=== PATIENT | male | born 1965 | race Caucasian/White ===

== ENCOUNTER → 2019-09-21 | Outpatient (CLI) | payer OTHER ==
[~2019-09-21] MED LIST: NORCO 5-325 TA1 EAC1 PO
== END ==
LOC: ULTRA 10:23
PROVIDERS: ATTEND Family Medicine
DX: R16.1 Splenomegaly, not elsewhere classified (principal)

== ENCOUNTER → 2019-09-22 | Outpatient (CLI) | payer OTHER | LOC: LAB 13:48 | PROVIDERS: ATTEND Student in an Organized Health Care Education/Training Program | DX: Z01.818 Encounter for other preprocedural examination (principal); Z11.59 Encounter for screening for other viral diseases ==

== ENCOUNTER 2019-09-24 07:22 | Observation (INO) | payer OTHER ==
[~2019-09-24] VITALS: Ht 198.1 cm; Wt 99.8 kg
--- NOTE | ~2019-09-24 | O ---
[facility] [place] [address] OPERATIVE REPORT Name: EMILEE YOUNG Room #: 447-P [facility] Davida Sparks#: [id number] Admission: 09/24/19 Attend Phys: Sanju Goodwin MD Discharge: 09/24/19 Date of : 69 Report #: [id number] THIS REPORT FOR: cc: Lowell Felix James A. DO Chu, Peter Y. MD ~ CC: Lowell Goodwin DATE OF SERVICE: 09/24/2019 PREOPERATIVE DIAGNOSIS: Cholecystitis with sludge. POSTOPERATIVE DIAGNOSES: Cholecystitis with sludge. Dense chronic adhesions surrounding the gallbladder. PROCEDURE PERFORMED: Laparoscopic cholecystectomy with cholangiogram. SURGEON: Sanju Goodwin MD ANESTHESIA: General anesthesia. COMPLICATIONS: None. ESTIMATED BLOOD LOSS: 20 mL. PROCEDURE NOTE: With the patient under general anesthesia, abdomen was prepped and draped in sterile fashion. The patient received IV antibiotics. Timeout was performed. A 0.25% Marcaine was used to anesthetize the skin. Curvilinear incision was made infraumbilically. Fascia was identified. Fascia was then incised between clamps. 0 Vicryl suture placed on the fascia for retraction. Incision and the fascia was made vertically just below the umbilicus. Veress needle was then placed through the peritoneum. Abdominal cavity was insufflated with CO2. After creating pneumoperitoneum, 11 mm trocar was placed through the fascia defect through the peritoneum under visualization. No harm to lung tissue. The patient did have a prior right inguinal hernia repair. Laparoscopic there is a slight gap of the internal ring, but I did not see any significant hernia. Left side is normal. Gallbladder was identified. The patient was placed in the reverse Trendelenburg position, right side tilted up. Two 5 mm trocars to the right upper quadrant, another 5 mm trocar was placed in right epigastrium. Gallbladder was covered by dense adhesions. The fundus of the gallbladder was identified. Adhesions were taken down. Cautery was used to divide the adhesions. The adhesions were quite dense on the gallbladder. I then circumferential wrap the gallbladder. This is consistent with chronic irritation to the gallbladder. The adhesions were taken down. When I got down to the more proximal part of the gallbladder, opening was made in the [address] [address] OPERATIVE REPORT Name: EMILEE YOUNG Room #: 447-P [facility] Davida Sparks#: [id number] Admission: 09/24/19 Attend Phys: Sanju Goodwin MD Discharge: 09/24/19 Date of : 69 Report #: [id number] gallbladder due to the thinning out of the gallbladder wall. The bile was suctioned out. Further dissection to the proximal part of the gallbladder was performed. The cystic duct was visualized. Cystic artery was also able to be visualized. The cystic duct was isolated. The gallbladder junction to the cystic duct was identified. Clip was placed here. Opening was made in the cystic duct. The cystic duct appears to be quite elongated. The catheter was placed in the cystic duct held with clips. The fluoroscopic cholangiogram was obtained. The common duct filled out well, I did not see any filling defect. There is a fairly long and tortuous cystic duct. The left hepatic did not fill as much, but there is no doubt where the catheter was identified in the cystic duct, no harm to the common duct. Cholangiogram catheter was identified, the proximal cystic duct was then clipped x 2 and then divided. Cystic artery was then isolated. This was clipped x 2 proximally and 1 distally and then divided. This area is fairly floppy. The gallbladder was free from the liver bed and retrieved through the infraumbilical port. When I was examining the liver bed, adjacent to the original artery, but more anterior there was a small artery branch. This was . After the bifurcation of the cystic artery, this branch was also clipped. Irrigation was performed. There was oozing laterally along the adhesion that was taken down. Clips were applied. The cautery was also used to cauterize some of the small vessels and the fat. Little bit of fat that was adherent to the gallbladder. Hemostasis obtained. Surgicel was placed on the adhesion areas. CO2 was evacuated. Trocars removed. The infraumbilical fascia defect was closed with [id number] 0 Vicryl x 2. The fascia defect was closed with [id number] 0 Vicryl x 2. Subcutaneous was irrigated. Skin closed with 5-0 PDS. Steri-Strip applied. Band-Aids applied. The patient tolerated the procedure well. By: 40 20 Sanju Goodwin MD /nt
[2019-09-24] MEDS ORDERED: NORCO 5-325 TA1 EAC1 PO (10:58)
--- NOTE | 2019-09-24 11:04 | H ---
[facility] [place] [address] HISTORY AND PHYSICAL Name: EMILEE YOUNG Room #: REG [facility]..#: [id number] Admission: 09/24/19 Attend Phys: Sanju Goodwin MD Discharge: Date of : 69 Report #: [id number] THIS REPORT FOR: cc: Lowell Felix,Sanju Neal MD ~ CC: Lowell Goodwin PREOPERATIVE DIAGNOSES: Cholecystitis with sludge. HISTORY OF PRESENT ILLNESS: The patient is a 54-year-old who has been feeling sick for about 3-4 months. The patient states that he has had abdominal issue ever since even high school. The patient has been having nausea, particularly in the morning. He usually will eat about a 1:00 or 2:00 when his nausea finally gets better. For the last 3 months, he has had pain in the right epigastrium and right upper quadrant. This would occur randomly. He has been taking Pepto-Bismol, Tums and also acid reducing agent. He has been increasingly miserable lately. No vomiting. No history of bloating or gas. He has had loose stool. The patient has lost about 20 pounds over the last 2-1/2 and 3 months. The patient does have full feeling after eating. There are multiple family members with gallbladder disease including his mother. The patient had an ultrasound performed. Ultrasound showed gallbladder sludge and tenderness over the gallbladder with ultrasound. PAST MEDICAL HISTORY: The patient is healthy. No heart disease, lung disease, diabetes. No liver or kidney disease. No bleeding disorder. No history of bleeding or history of any blood clots. ALLERGIES: The patient has allergy to CODEINE. PAST SURGICAL HISTORY: Had a nasal surgery 25 years ago, had hernia repair about 10 years ago. FAMILY HISTORY: Besides gallbladder, dad had prostate cancer. SOCIAL HISTORY: The patient works as a remodeling contractor. The patient does not smoke. He rarely drinks. REVIEW OF SYSTEMS: No shortness of breath, chest pain, palpitation. No numbness or weakness. PHYSICAL EXAMINATION: GENERAL: Alert and oriented male in no acute distress. HEENT: Pupils react to light. Extraocular muscles are intact. Oropharynx is clear. NECK: Soft and supple, no masses. [facility] [address] [place] [address] HISTORY AND PHYSICAL Name: EMILEE YOUNG Room #: REG [facility]#: [id number] Admission: 09/24/19 Attend Phys: Sanju Goodwin MD Discharge: Date of : 69 Report #: [id number] LUNGS: Clear to auscultation. HEART: Regular rate and rhythm. No murmur or gallop. ABDOMEN: The patient does have tenderness in the right upper quadrant. No mass, no guarding. No ascites. Feels like he has got scar tissue in the right external inguinal ring. It feels like there is a mesh there. I do not feel a recurrent hernia. EXTREMITIES: No cyanosis, clubbing or edema. IMPRESSION: The patient is a 54-year-old who has a longstanding history of digestive issue even going back to high school. For the last 3-4 months his symptoms have progressed. He is also now having pain in the right epigastrium and right upper quadrant. He has lost weight because of the symptom. The patient had an ultrasound, which showed sludge. He has not been fasting. His symptoms do sound like gallbladder disease. There is a strong family history. The patient did have an abnormal ultrasound. The patient is recommended to proceed with gallbladder surgery. He has been quite miserable. The patient understands the procedure, risks involved. The risk of bleeding, infection was discussed. The patient wants to proceed. <ELECTRONICALLY SIGNED> By: Sanju Goodwin MD 09/24/19 1104 [id number] Sanju Goodwin MD /nt
[2019-09-24 12:10] VITALS: BP 158/90
--- NOTE | 2019-09-24 13:43 | NUR ---
ASSUMED PT CARE AROUND 1230. PT ALERT X ORIENTED X 4. PT ON OBSERVATION AFTER CHOLECYSTITIS WITH SLUDGE. PT HAS NO N/V. TOLERATED CLEAR LIQUIDS AND REGULAR DIET. PT'S GOAL IS TO GO HOME TODAY. PT HAS A PAIN OF 4, BUT PT SAID HE DON'T NEED ANY PAIN MEDS. PT LYING ON BED. CALL LIGHT WITH IN REACH. WILL CONT TO MONITOR.
[2019-09-24 16:00] VITALS: BP 138/79
[2019-09-24 16:41] VITALS: BP 158/90
--- NOTE | 2019-09-27 17:07 | PATH ---
[facility] [place] [address] PATHOLOGY RPT PROCEDURE Name: EMILEE YOUNG Room #: 447-P [facility] Davida Sparks#: [id number] Admission: 09/24/19 Date of : 69 Discharge: 09/24/19 Report #: [id number] Path Case #: [id number] [facility] Accession Number: [id number] . 01 Material submitted: . gallbladder - GALLBLADDER . 01 Clinical history: . Gallbladder disease . 02 Diagnosis: Gallbladder, cholecystectomy: - Mild chronic cholecystitis. (IUV:cyanide case hardener; 09/27/2019) R 09/27/2019 1409 Local . 02 Electronically signed: . Alxy Foster MD, Pathologist NPI- [id number] . 01 Gross description: . The specimen is received in formalin, labeled "Marimar, Emilee, gallbladder" and consists of a previously opened ragged partial green gallbladder measuring 8.6 x 3.0 x 0.4 cm. The margin is inked. No bile or stones are present. The mucosa is green and granular with a wall thickness of 0.2 cm. No gross lesions are identified. Hydra[employer] sections are submitted in A1. ([facility]; 09/26/2019) JFQ/JFQ 09/26/2019 1433 Local . 02 Pathologist provided ICD-10: K81.1 . 02 CPT . 555748 Specimen Comment: A courtesy copy of this report has been sent to [phone], [phone] Specimen Comment: [phone] Specimen Comment: Report sent to / DR PA Performed at: [address], [place] [id number] MD De Tan MD Phone: [phone] Performed at: [address] [id number] MD Alyx Foster MD Phone: [phone]
== END 2019-09-24 17:35 | disposition home or self-care (01) ==
LOC: OR 07:22 → 4S 10:56 → OR 14:55 → 4S 17:35
PROVIDERS: ADMIT Surgery; ATTEND Surgery
DX: K81.9 Cholecystitis, unspecified (principal); K82.8 Other specified diseases of gallbladder
CPT/HCPCS: 50010; 50101; 50249; 50411; 50555; 50558; 51489; 52265; 53307; 53310; 55245; 55317; 56462; 56525; 56526; 62110; 62900; 70005

== ENCOUNTER → 2020-08-15 | Outpatient (CLI) | payer OTHER | LOC: RAD 12:38 | PROVIDERS: ATTEND Nurse Practitioner | DX: M47.816 Spondylosis without myelopathy or radiculopathy, lumbar region (principal); M43.17 Spondylolisthesis, lumbosacral region; M48.061 Spinal stenosis, lumbar region without neurogenic claudication ==

== ENCOUNTER → 2020-09-10 | Outpatient (CLI) | payer OTHER ==
[~2020-09-10] VITALS: Ht 200.7 cm; Wt 97.5 kg
[~2020-09-10] MED LIST changes: +FLEXERIL PO; +NEXIUM 40 MG CA40 M1 PO; +OMEPRAZOLE40 MG PO; +TRAMADOL 50 MG50 MG PO
[2020-09-10 14:36] VITALS: BP 149/96
--- NOTE | 2020-09-10 14:48 | NUR ---
Pain Clinic Assessment: 1. History of Osteoarthritis: Not Applicable History of Rheumatoid Arthritis: Not Applicable 2. Height: 6 ft. 7 in. 200.7 cm. Weight: 215.0 lb. oz. 97.524 kg. Patient's BMI: 24.2 3. Vital Signs: BP: 149/96 Pulse: 81 Resp: 16 Temp: 02 Sat: 99 ECG Mon: 4. Pain Intensity: 4 5. Fall Risk: Dizziness: N Needs help standing or walking: N Fallen in the last 3 months: N Fall risk comments: 6. Patient on Blood Thinner: None 7. History of Hypertension: N 8. Opioid Therapy greater than 6 weeks: N Opiate Contract Signed: 9. Risk Assessment Tool Provided: 10. Functional Assessment Tool: 11. Recreational Drug Use: Never Drug Type: Tobacco Use: Never Smoker Tobacco Type: Amount or Packs/day: How Many Years: Alcohol Use: Yes Frequency: Monthly Quant: 2-3
--- NOTE | 2020-09-17 09:33 | HPC ---
[facility] [address] [place] [address] PAIN MANAGEMENT CONSULTATION Name: EMILEE YOUNG Room #: REG [facility].#: [id number] Admission: 09/10/20 Attend Phys: Lowell Hair DO Discharge: Date of : 69 Report #: [id number] THIS REPORT FOR: cc: Lowell Felix James A. DO Johnson, James E. DO ~ DOC #: [id number] cc: DO Lowell Licea DO DATE OF SERVICE: 09/10/2020 REFERRING PHYSICIAN: Dr. Lowell Felix. CHIEF COMPLAINT: Low back pain, left lower extremity pain with paresthesias. HISTORY OF PRESENT ILLNESS: As you know, the patient is a very pleasant 55-year-old male who reports a history of low back pain, intermittent lower extremity pain with paresthesias. The patient has undergone injection therapy at pain care here in the [place] area, undergoing epidural injections x2 with good efficacy. This was years ago. 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 He states that on the date of 07/13/2020, he was sitting in a low bench like chair with his girlfriend when he began experiencing reoccurrence of his low back pain, left lower extremity pain with paresthesias. He suffered no new injury or trauma. He has been provided tramadol and Flexeril to help with pain control. He also trialled a short dosing of methylprednisolone, but even that medication did not provide much in the way of improvement. Due to lack of improvement with these conservative treatments, he was sent on for MRI of the lumbar spine. The findings were such, the patient was then referred on to our clinic. The patient indicates today pain is continuous, steady and constant. He describes the pain as burning, shooting, aching, gnawing, sharp, stabbing, numbness, and tingling. Places current pain score anywhere from 4-5/10. Daily average at 7-8/10. Worst pain has been is 9-10/10. The patient states pain is exacerbated with sitting, walking, standing for any length of time. Pain is improved with lying down. He did receive some transient improvement with the methylprednisolone, but this was only short-lived. He has been referred to our service to discuss treatment options for suspected lumbar radiculopathy. PAST MEDICAL HISTORY: Gastroesophageal reflux disease. PAST SURGICAL HISTORY: 1. Cholecystectomy, 09/20/2019. 2. Herniorrhaphy 8 years ago. 3. Rhinoplasty 25 [address] [address] PAIN MANAGEMENT CONSULTATION Name: EMILEE YOUNG Room #: REG [facility] Sparks#: [id number] Admission: 09/10/20 Attend Phys: Lowell Hair DO Discharge: Date of : 69 Report #: [id number] SOCIAL HISTORY: The patient denies tobacco use. Denies IV or illicit drug use. Admits to approximately 1-2 alcohol beverages per week. He is currently employed as a remodeling contractor. He is working, not receiving workmen's compensation, nor is he trying to obtain disability benefits. He is not in litigation in regards to pain. He is unaccompanied at today's visit. REVIEW OF SYSTEMS: Positive for weight change, decrease in appetite, wearing corrective eyewear, low back pain, left lower extremity pain with paresthesias. All other review of systems negative per 12-point review of systems other than those listed in history of present illness. Pain impact score 42/70 indicating severe interference of daily activities secondary to pain. ALLERGIES: CODEINE. CURRENT MEDICATIONS: Omeprazole 40 mg once a day, cyclobenzaprine 10 mg t.i.d. p.r.n., Ultram 50 mg 1 tab every 6 hours p.r.n. pain. IMAGING: MRI lumbar spine obtained on 08/27/2020 shows T12-L1 unremarkable, L1-L2 unremarkable, L2-L3 shows mild disk bulge, minimal facet arthropathy. No central canal stenosis, mild left foraminal stenosis. L3-L4 shows mild disk bulge. Minimal facet arthropathy. No central canal stenosis, mild bilateral neural foraminal narrowing. Thecal sac measuring 1.4 cm. L4-L5, mild disk height loss, small disc bulge. Minimal facet arthropathy. No central canal stenosis, mild bilateral neural foraminal stenosis, thecal sac measuring 2.1 cm. L5-S1 anterolisthesis, moderate disk height loss. Small uncovered disk bulge, moderate facet arthropathy. No significant central canal stenosis, mild right foraminal stenosis, central canal measuring 2.3 cm. PHYSICAL EXAMINATION: VITAL SIGNS: Blood pressure 149/96, pulse 81, respiratory rate 16 and unlabored. The patient is 99% on room air, height 6 feet 7 inches tall, weight 215 pounds, BMI calculated 24.2. GENERAL: Well-developed, well-nourished, well-hydrated, 55-year-old male appearing stated age, pain is rated today, 4/10. HEENT: Normocephalic, atraumatic. Pupils equal, round and responsive to light. He is wearing a mask in compliance with COVID-19 regulations. LUNGS: Appear clear. No appreciable wheezes, rhonchi, or rales. CARDIOVASCULAR: Regular. No appreciable gallop, no rub. ABDOMEN: Soft, nontender. EXTREMITIES: Show no clubbing, no cyanosis. No appreciable edema. MUSCULOSKELETAL: Lower extremity strength equal and symmetrical 5/5. Muscle bulk and tone equal and symmetrical comparing lower extremities. Seated straight leg raising negative. Supine straight leg raising is positive on the left at about a 70-degree angle. Ankle clonus negative. Babinski's negative. [address] [address] PAIN MANAGEMENT CONSULTATION Name: EMILEE YOUNG Room #: REG [facility]#: [id number] Admission: 09/10/20 Attend Phys: Lowell Hair DO Discharge: Date of : 69 Report #: [id number] Gait appears normal. Stance is normal. ASSESSMENT: 1. Symptomatic lumbar radiculopathy. 2. Minimally displaced lumbar intervertebral disk with radiculopathy. 3. Neural foraminal stenosis of lumbar spine. 4. Chronic intractable pain. PLAN: 1. Based on today's physical exam and history the patient has provided, the description the patient uses in regards to pain as well as location of symptoms and the distribution of symptoms themselves as well as the descriptors, the likely source of the patient's pain is a lumbar radiculopathy. The patient and I discussed at length today the findings of his MRI. We spent over 18 minutes time reviewing his MRI and correlating to his current symptoms. After that discussion, we then conversed about the treatment options, we have in regards to lumbar radiculopathy. Following was discussed with the patient today: 1. We discussed physical therapy, stretching exercise, core strengthening as a treatment approach. He states he is doing home stretching programs that are physician directed by his PCP, but has noted no significant pain improvement. We discussed medication management with the addition of a neuropathic medication to address neuropathy specifically. These would include amitriptyline, nortriptyline, Cymbalta, Lyrica, or gabapentin. We discussed epidural injections for which the patient was referred to our clinic. We also discussed spinal cord stimulator therapy and surgical options. After reviewing the risks and benefits of all proposed treatment options, the patient chose to move forward with a lumbar epidural injection under fluoroscopic guidance. 2. No medication changes made at today's visit. The patient will continue current medical therapy as prior prescribed. 3. We plan to see the patient back in followup visit tomorrow to undergo a lumbar epidural injection under fluoroscopic guidance. The patient needed to clear his schedule to be able to accommodate taking it easy for the first 24 hours. He will be clearing his schedule in preparation for that procedure to be performed tomorrow morning. 4. We wish to thank the referring physician, Dr. Lowell Felix and his nurse practitioner, Arabella Jiang for the opportunity to see the patient in consultation. We will keep you apprised of his response to treatment as we address lumbar radiculopathy. Again, we wish to thank you for the opportunity to see the patient in consultation. Lowell Hair DO [facility]/[address] [address] PAIN MANAGEMENT CONSULTATION Name: HECTOREMILEE [id number] Admission: 09/10/20 Attend Phys: Lowell Hair DO Discharge: Date of : 69 Report #: [id number] <ELECTRONICALLY SIGNED> By: Lowell Hair DO 09/17/20 0933 1606 [id number] Lowell Hair DO /nt
== END ==
LOC: PAIN 09:07
PROVIDERS: ATTEND Anesthesiology Pain Medicine
DX: M51.16 Intervertebral disc disorders with radiculopathy, lumbar region (principal); M48.061 Spinal stenosis, lumbar region without neurogenic claudication; G89.4 Chronic pain syndrome; Z79.891 Long term (current) use of opiate analgesic; Z79.899 Other long term (current) drug therapy

== ENCOUNTER → 2020-09-11 | Outpatient (CLI) | payer OTHER ==
[~2020-09-11] VITALS: Ht 200.7 cm; Wt 95.8 kg
[2020-09-11 10:40] VITALS: BP 135/95
--- NOTE | 2020-09-11 10:47 | NUR ---
Pain Clinic Assessment: 1. History of Osteoarthritis: Not Applicable History of Rheumatoid Arthritis: Not Applicable 2. Height: 6 ft. 7 in. 200.7 cm. Weight: 211.2 lb. oz. 95.800 kg. Patient's BMI: 23.8 3. Vital Signs: BP: 135/95 Pulse: 74 Resp: 16 Temp: 02 Sat: 98 ECG Mon: 4. Pain Intensity: 4 5. Fall Risk: Dizziness: N Needs help standing or walking: N Fallen in the last 3 months: N Fall risk comments: 6. Patient on Blood Thinner: None 7. History of Hypertension: N 8. Opioid Therapy greater than 6 weeks: N Opiate Contract Signed: 9. Risk Assessment Tool Provided: low-0 10. Functional Assessment Tool: 11. Recreational Drug Use: Never Drug Type: Tobacco Use: Never Smoker Tobacco Type: Amount or Packs/day: How Many Years: Alcohol Use: Yes Frequency: Quant:
--- NOTE | 2020-09-17 09:34 | HPC ---
[facility] [place] [address] PAIN MANAGEMENT CONSULTATION Name: EMILEE YOUNG [facility] #[facility] [id number] Admission: 09/11/20 Attend Phys: Lowell Hair DO Discharge: Date of : 69 Report #: [id number] THIS REPORT FOR: cc: Lowell Felix James A. DO Johnson, James E. DO ~ DOC #: [id number] cc: DO Lowell Licea DO DATE OF SERVICE: 09/11/2020 CHIEF COMPLAINT: Low back pain, left lower extremity pain, and paresthesias. HISTORY OF PRESENT ILLNESS: As you know, the patient is a very pleasant 55-year-old male who has a history of low back pain, intermittent left lower extremity pain. He has undergone injection therapies in the form of epidural injections in the past, which provided good efficacy. This was done years ago. He continues to participate in daily activities. 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 He states that on 07/13/2020, he was sitting in a low bench chair with his girlfriend when he began experiencing low back pain, left lower extremity symptoms that progressed. Despite conservative treatment, he did not improve. He was sent to our clinic to discuss options for treatment. We saw the patient on 09/10/2020, diagnosed with lumbar radiculopathy, provided treatment options and he chose to undergo lumbar epidural injection. He returns today to undergo the first in a series. He has had no changes in his medication management since our visit yesterday. No new injury or trauma. He is placing current pain score at 4/10. ALLERGIES: CODEINE. CURRENT MEDICATIONS: Tramadol, escitalopram, cyclobenzaprine. SOCIAL HISTORY: The patient denies tobacco use. Denies IV or illicit drug use. Admits to approximately one to two alcoholic beverage per week. He is currently employed as a remodeling contractor working, not receiving workmen's compensation, unaccompanied today. IMAGING: No new imaging available. PHYSICAL EXAMINATION: VITAL SIGNS: Blood pressure 135/95, pulse 74, respiratory rate 16 and unlabored. The patient 98% on room air, height 6 feet 7 inches tall, weight 211.2 pounds, BMI calculated 23.8. GENERAL: Well-developed, well-nourished, well-hydrated 55-year-old male appearing stated age, pain is rated a 4/10. HEENT: Normocephalic, atraumatic. Pupils are round. [place] [address] PAIN MANAGEMENT CONSULTATION Name: EMILEE YOUNG Room #: REG [facility].#: [id number] Admission: 09/11/20 Attend Phys: Lowell Hair DO Discharge: Date of : 69 Report #: [id number] compliance with COVID-19 regulations. EXTREMITIES: Show no clubbing, no cyanosis, no edema. MUSCULOSKELETAL: Lower extremity strength is symmetrical again today 5/5. Seated straight leg raising negative. Supine straight leg raising positive on the left, again at about a 70-degree angle. Ankle clonus negative. Babinski is negative. Gait appears normal. ASSESSMENT: 1. Symptomatic lumbar radiculopathy. 2. Minimally displaced lumbar intervertebral disk with radiculopathy. 3. Neuroforaminal stenosis of the lumbar spine. 4. Lumbar degeneration. 5. Chronic intractable pain. PLAN: 1. The patient returns today in followup visit to undergo lumbar epidural injection under fluoroscopic guidance. He is placing pain again today at level 4/10. He has been advised the risks and benefits of a lumbar epidural injection. These risks include but are not necessarily limited to bleeding, bruising, infection, worsening pain, no relief of pain, also risk of temporary or permanent muscle weakness, temporary or permanent nerve damage, possible paralysis, postdural puncture headache, and . The patient states understood and wished to proceed. 2. No medication changes made at today's visit. The patient will continue current medical therapy as prior prescribed. 3. We will plan to see the patient back in followup visit in approximately 30 days. At that time, we will review the efficacy of today's epidural injection and determine next in the series of epidural injections might be necessary. We are hopeful the patient will see good and prolonged benefit with today's epidural injection. PROCEDURE NOTE DESCRIPTION OF PROCEDURE: L5-S1 left paramedian epidural steroid injection under fluoroscopic guidance. This is the first procedure of the first series that the patient is undergoing. After obtaining written consent, the patient was taken back to the fluoroscopy suite, placed in a prone position with pillow under the abdomen to decrease lumbar lordosis. The skin overlying the lumbosacral area was then prepped and draped in aseptic fashion. The L5-S1 vertebral interspace was then identified by AP fluoroscopy. The skin and subcutaneous tissue overlying the target site of injection was anesthetized with 3 mL 1% lidocaine. A 20-gauge 3.5-inch Tuohy needle was then advanced under fluoroscopic guidance [address] [address] PAIN MANAGEMENT CONSULTATION Name: EMILEE YOUNG [facility] [id number] Admission: 09/11/20 Attend Phys: Lowell Hair DO Discharge: Date of : 69 Report #: [id number] towards the epidural space using a left paramedian approach. The epidural space was identified using loss of resistance to air technique. After negative aspiration for heme or cerebrospinal fluid, a total of 1 mL of Omnipaque was injected. A lumbar epidurogram was confirmed using both AP and lateral fluoroscopy. After negative aspiration for heme or cerebrospinal fluid, 5 mL of a solution containing 2 mL 40 mg per mL 80 mg total triamcinolone along with 3 mL of lidocaine 1% was injected in increments. Contrast spread was noted posterior epidural space. The needle was then retracted approximately half way and needle tract flushed with 1 mL of 1% lidocaine. Needle was then removed. There were no apparent sensory or motor deficits in the lower extremity following the procedure. A sterile bandage was placed over the injection site. The heart rate, pulse, oximetry and blood pressure were continuously monitored after the procedure. There were no apparent complications. The patient tolerated the procedure well and was carefully escorted to the recovery room in stable condition. There were no apparent complications. After meeting discharge criteria, the patient was then discharged home. Lowell Hair DO JEJ/BETITO <ELECTRONICALLY SIGNED> By: Lowell Hair DO 09/17/20 0934 1104 2150 Lowell Hair DO /traci
== END | disposition home or self-care (01) ==
LOC: PAIN 07:01
PROVIDERS: ATTEND Anesthesiology Pain Medicine
DX: M51.16 Intervertebral disc disorders with radiculopathy, lumbar region (principal); M48.061 Spinal stenosis, lumbar region without neurogenic claudication; G89.29 Other chronic pain; Z98.890 Other specified postprocedural states; Z79.899 Other long term (current) drug therapy; Z88.6 Allergy status to analgesic agent

== ENCOUNTER → 2020-09-25 | Outpatient (CLI) | payer OTHER ==
[~2020-09-25] VITALS: Ht 200.7 cm; Wt 94.4 kg
[~2020-09-25] MED LIST changes: +MEDROLDOSEPACK PO; +RELAFEN500 M1 PO
--- NOTE | 2020-09-25 08:44 | NUR ---
Pain Clinic Assessment: 1. History of Osteoarthritis: Not Applicable History of Rheumatoid Arthritis: Not Applicable 2. Height: ft. in. cm. Weight: lb. oz. kg. Patient's BMI: 3. Vital Signs: BP: Pulse: Resp: Temp: 02 Sat: ECG Mon: 4. Pain Intensity: 7 5. Fall Risk: Dizziness: N Needs help standing or walking: N Fallen in the last 3 months: N Fall risk comments: 6. Patient on Blood Thinner: None 7. History of Hypertension: N 8. Opioid Therapy greater than 6 weeks: N Opiate Contract Signed: 9. Risk Assessment Tool Provided: low-0 10. Functional Assessment Tool: 42 11. Recreational Drug Use: Never Drug Type: Tobacco Use: Never Smoker Tobacco Type: Amount or Packs/day: How Many Years: Alcohol Use: Yes Frequency: Monthly Quant: 2-3
[2020-09-25 08:50] VITALS: BP 130/90
--- NOTE | 2020-09-27 12:39 | HPC ---
[facility] [place] [address] PAIN MANAGEMENT CONSULTATION Name: EMILEE YOUNG Room #: REG [facility].#: [id number] Admission: 09/25/20 Attend Phys: Lowell Hair DO Discharge: Date of : 69 Report #: [id number] THIS REPORT FOR: cc: Lowell Felix James A. DO Johnson, James E. DO ~ DOC #: [id number] cc: DO Lowell Licea DO DATE OF SERVICE: 09/25/2020 CHIEF COMPLAINT: Low back pain, left lower extremity pain. HISTORY OF PRESENT ILLNESS: As you know, the patient is a very pleasant 55-year-old male who reports acute onset of low back pain, left lower extremity pain began 06/12/2020. No inciting injury or trauma. The patient was seen in consultation per the request of his primary care physician, Dr. Felix on 09/10/2020, diagnosed with lumbar radiculopathy and underwent a lumbar epidural injection under fluoroscopic guidance on 09/11/2020. 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 He is now placing pain score 7/10. He states he felt a popping sensation in his low back led to recurrence of symptoms. He now describes the pain as aching, constant dull, sharp, stabbing, shooting, gnawing indicates pain is exacerbated with standing, walking, sitting and doing activities, improves with lying down and previous epidural injection. He returns today in followup visit 2 weeks post-procedurally to discuss options for treatment and further evaluation. ALLERGIES: CODEINE. CURRENT MEDICATIONS: Cyclobenzaprine, Nexium, and tramadol. SOCIAL HISTORY: The patient denies tobacco use. Denies IV or illicit drug use. Admits occasional alcohol beverage. He is remodeling contractor working, not receiving workmen's compensation, unaccompanied today. IMAGING: No new imaging available. PHYSICAL EXAMINATION: GENERAL: Well-developed, well-nourished, well-hydrated 55-year-old male, appearing stated age, placing current pain score 7/10. HEENT: Normocephalic, atraumatic. Pupils equal, round and responsive. EXTREMITIES: Show no clubbing, no cyanosis. No appreciable edema. MUSCULOSKELETAL: There once again is palpatory tenderness noted over the paraspinal musculature of the lumbar spine. No spinous process tenderness. Seated straight leg raising is negative. Supine straight leg raising positive [address] [address] PAIN MANAGEMENT CONSULTATION Name: EMILEE YOUNG Room #: REG [facility] Richard..#: [id number] Admission: 09/25/20 Attend Phys: Lowell Hair DO Discharge: Date of : 69 Report #: [id number] on the left. Tejinder's test is negative. There is minimization of rotation and lateral flexion due to intensification of pain. Muscle bulk and tone is equal and symmetrical in lower extremities, remains intact to all tactile sensations. ASSESSMENT: 1. Symptomatic lumbar radiculopathy. 2. Minimally displaced lumbar intervertebral disk with radiculopathy. 3. Neural foraminal stenosis of lumbar spine. 4. Lumbar degeneration. 5. Chronic intractable pain. PLAN: 1. 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 He states that he was doing well, just prior to this incident. He denies any specific rotational portion that caused intensification of pain, but noted pain immediately upon discontinuing the activity. He returns today in followup visit. He has trialled rest relaxation and muscle relaxants without benefit. Based on the physical exam, he does appear he is suffering from recurrence of his radicular pain, but also some myofascial symptoms likely due to muscle irritation and fascial irritation. We discussed with the patient conservative treatment and further imaging. 2. The patient will be sent for flexion and extension films of lumbar spine. I am concerned that the L5-S1 level may have a pathologic movement as you are aware MRIs are not very effective at picking up spondylolisthesis. We will have the patient undergo x-ray imaging flexion, extension and determine if there is pathologic movement of the L5 on S1. This would correlate with the patient's reports of a popping sensation in his low back when he is moving. He has minimal facet arthropathy, so I am not significantly concerned that it is facet arthropathy exacerbation. We will review the imaging once it is available. He will undergo the x-ray imaging today. 3. We will start the patient on Medrol Dosepak. I provided the medication for him to start today. He will take the pack as directed. 4. The patient was provided prescription of nabumetone 500 mg dose 1 tab p.o. t.i.d. with meals. I have advised the patient not to take any other nonsteroidal anti-inflammatories with this medication. This will help with his myofascial symptoms. He will watch for dyspepsia, worsening of blood pressure, and lower extremity edema with use of medication. If he notes these side effects, discontinue immediately and call for further instructions. 5. We plan to see the patient back in followup visit at our previously agreed upon date to undergo the second in the series of epidural injections. We will keep you apprised of his response to treatment. DO OZIEL Hudson/[address] [address] PAIN MANAGEMENT CONSULTATION Name: EMILEE YOUNG Room #: REG [facility] Sparks#: [id number] Admission: 09/25/20 Attend Phys: Lowell Hair DO Discharge: Date of : 69 Report #: [id number] <ELECTRONICALLY SIGNED> By: Lowell Hair DO 09/27/20 1239 [id number] 2200 Lowell Hair DO /nt
== END ==
LOC: PAIN 06:50
PROVIDERS: ATTEND Anesthesiology Pain Medicine
DX: M43.17 Spondylolisthesis, lumbosacral region (principal); M51.37 Other intervertebral disc degeneration, lumbosacral region; I70.0 Atherosclerosis of aorta; M79.605 Pain in left leg; M51.16 Intervertebral disc disorders with radiculopathy, lumbar region; M48.061 Spinal stenosis, lumbar region without neurogenic claudication; M47.26 Other spondylosis with radiculopathy, lumbar region

== ENCOUNTER → 2020-10-16 | Outpatient (CLI) | payer OTHER ==
[~2020-10-16] VITALS: Ht 200.7 cm; Wt 96.2 kg
[2020-10-16 08:53] VITALS: BP 130/88
--- NOTE | 2020-10-22 08:37 | HPC ---
[facility] [place] [address] PAIN MANAGEMENT CONSULTATION Name: EMILEE YOUNG [facility] #: [facility] [id number] Admission: 10/16/20 Attend Phys: Lowell Hair DO Discharge: Date of : 69 Report #: [id number] THIS REPORT FOR: cc: Lowell Felix,Lowell Small DO ~ cc: Lowell Felix DO DATE OF SERVICE: 10/16/2020 REFERRING PHYSICIAN: Dr. Felix CHIEF COMPLAINT: Low back and left lower extremity pain with paresthesias. HISTORY OF PRESENT ILLNESS: As you know, the patient is a very pleasant 55-year-old male reporting acute onset of low back pain, left lower extremity pain that began 06/12/2020. The patient denied injury or trauma. He was evaluated in consultation 09/11/2020 and underwent a lumbar epidural injection under fluoroscopic guidance to address lumbar radicular symptoms. He returned on 09/25/2020 with good improvement in symptoms. We adjusted medications at that visit. He made today's appointment to return and discuss options for treatment if his symptoms do reoccur. At present, he has been able to return to all activities of daily living without significant pain interference, worst his pain has ever been since our last visit was 2-06/12. He is very pleased with response to treatment, returning today in followup visit to discuss options for treatment if his symptoms do reoccur. ALLERGIES: CODEINE. CURRENT MEDICATIONS: Tramadol 50 mg q. 12 hours p.r.n. for pain, Nexium 20 mg per day, cyclobenzaprine 10 mg p.r.n. SOCIAL HISTORY: The patient denies tobacco use, denies IV or illicit drug use. Admits to occasional alcohol beverage. 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 He is unaccompanied today. IMAGING: No new imaging available. PHYSICAL EXAMINATION: GENERAL: Well-developed, well-nourished, well-hydrated 55-year-old male appearing stated age. His pain today at 2-06/12. HEENT: Normocephalic, atraumatic. Pupils are round and responsive. He is wearing a mask in compliance with COVID-19 regulations. EXTREMITIES: Show no clubbing, no cyanosis, no appreciable edema. MUSCULOSKELETAL: Lower extremity strength is symmetrical 5/5 intact to light touch from L1 through S2 dermatomes. Seated straight leg raising negative. [address] [address] PAIN MANAGEMENT CONSULTATION Name: EMILEE YOUNG Room #: REG [facility].#: [id number] Admission: 10/16/20 Attend Phys: Lowell Hair DO Discharge: Date of : 69 Report #: [id number] Supine straight leg raising positive on the left. Tejinder's test is negative. Modified Gaenslen's positive for axial low back pain. ASSESSMENT: 1. Symptomatic lumbar radiculopathy. 2. Displaced lumbar intervertebral disc with radiculopathy. 3. Neuroforaminal stenosis of lumbar spine. 4. Lumbar degeneration. 5. Chronic intractable pain. PLAN: 1. The patient returns today in followup visit to discuss treatment options if his symptoms do reoccur. He is very pleased with the response to the injections, noting about 90% improvement in overall pain. He has been able to return to all activities of daily living without significant pain interference. He is very pleased with the response to the treatment and wants to discuss further treatment options if symptoms do reoccur. We discussed with the patient that if his symptoms do reoccur, we would be more than willing to see him back as quickly as possible to undergo lumbar epidural injection under fluoroscopic guidance given his excellent improvement in symptoms with the initial procedure. We also discussed medication management with the patient and even surgical consultations, though we recommend a conservative approach at this time. The patient is agreeable to this plan. 2. No medication changes made at today's visit. The patient will continue current medical therapy as prior prescribed. 3. We will plan to see the patient back in followup visit on an as needed basis for the next in the series of lumbar epidural injections. We are pleased to see the patient has done well. We will see him back in followup visit on an as needed basis. <ELECTRONICALLY SIGNED> By: Lowell Hair DO 10/22/20 0837 [id number] [id number] Lowell Hair DO /nt
== END ==
LOC: PAIN 07:24
PROVIDERS: ATTEND Anesthesiology Pain Medicine
DX: M51.16 Intervertebral disc disorders with radiculopathy, lumbar region (principal); M48.061 Spinal stenosis, lumbar region without neurogenic claudication; G89.4 Chronic pain syndrome; Z79.899 Other long term (current) drug therapy; Z79.891 Long term (current) use of opiate analgesic